=== PATIENT | male | born 1950 | race Caucasian/White ===

== ENCOUNTER → 2016-09-22 | Day surgery (SDC) | payer OTHER ==
[~2016-09-22] MED LIST: ADVAI500I PO; ALBU8I INH; BUPIVACAINE/EPINEPHRINE 0.25% 50 ML VIAL ONE; DILA50CH CHEW; DILA8TAB4 PO; DOXE25CA2 PO; FURO40TA PO; GABA300C3 PO; INDO25 PO; IPRA0.03; LACTATED RINGER'S 1000 ML INJ 1,000 ML ONE; LIDOCAINE HCL 1% 50 ML VIAL ONE; LOPI600T PO; LOSA100T PO; MORP100T40 PO; NAPR-576 PO; PEXE20TA PO; PRAV40 PO; PROPOFOL 100 MG/10 ML INJ IV ONE; PROPOFOL 500 MG/50 ML BTL IV ONE; PROT40TA PO; ROBA750T3 PO; SODIUM BICARBONATE 8.4% INJ 50 ML ONE; SYNT50TA PO; TAMS0.4C4; TIOT18I INH; VANCOMYCIN HCL 1000 MG VIAL ONE; XANA0.5T PO; ceFAZolin 2 GM PREMIX 50 ML ONE
--- NOTE | 2016-09-22 10:11 | TN ---
cc: SHARRI DESAI M.D. DATE OF OPERATION September 22, 2016 PREOPERATIVE DIAGNOSES 1. Chronic pain syndrome. 2. Status post L3-L5 laminectomy and fusion, spinal instrumentation. 3. Thoracic/lumbar spine severe degenerative disc disease, osteoarthritis. POSTOPERATIVE DIAGNOSES 1. Chronic pain syndrome. 2. Status post L3-L5 laminectomy and fusion, spinal instrumentation. 3. Right greater than left chronic lumbar radiculopathy. 4. Thoracic/lumbar spine severe degenerative disc disease, osteoarthritis. PROCEDURE Thoracic laminectomy, implantation neurostimulator and electrodes in the epidural space; insertion of spinal neurostimulator, pulse generator; complex program first hour, fluoroscopic guidance for localization of spinal cord paddle lead device. SURGEON Robbie Desai MD ASSESSMENT Sophia Jordan PA-C SPECIMENS None. ESTIMATED BLOOD LOSS Minimal. COMPLICATIONS None. ANESTHESIA TIVA, local. DRAINS None. CONDITION Stable. PLAN OF ACTIVITY As per orders. PROCEDURE My assistant general manager Sophia Jordan PA-C, was present for the entire surgical case. She was medically necessary for the entire case because of the complexity of the case and to facilitate the performance of the procedure. The HAND FUNNEL COATER at the back table was not of the skill set for this case to manipulate the instruments, e.g. multiple different soft tissue retractors, trial implants and permanent implants. The patient was brought into the operating room. The patient positioned himself in a prone position. He was very comfortable. The patient was then given sedation. The thoracic, lumbar spine and posterior iliac crest were all prepped and draped in the usual sterile manner. Localizing x-ray was used to confirm the T10-T11 interspace. Local anesthesia with bicarbonate was used to anesthetize the operative site. A small incision was made in this region of the lower thoracic spine. All bleeders were anticoagulated. The paraspinal muscles were gently removed from the posterior elements. A laminectomy was performed. Using the Sm[employer] cover edge X32, 50 cm in length, 4.8 surgical services director was then placed in the interspace from approximately mid-T7 down through T9. The patient was then awakened. He is found to have excellent stimulation in his lumbar spine region where he had the pain and excellent stimulation involving bilateral lower extremities. The patient was then re-anesthetized. The anchor leads were then used and secured in leads #1 and #4 to the posterior spinous processes using 3-0 Vicryl suture. A separate incision was made over the right posterior iliac crest region in the flank area between the iliac crest and the rib cage. Pocket was developed following the use of local anesthesia. The passer was then placed into the thoracic/lumbar spine incision and all four leads were then connected to the [employer] implantable pulse generator. Programming was performed. The patient was found to have excellent connections. The thoracic spine incision was closed in multiple layers using 0 Vicryl and 2-0 Vicryl. The skin was approximated with running subcuticular 3-0 Vicryl. The right flank incision was closed with 0 Vicryl, 2-0 Vicryl and running subcuticular 3-0 Vicryl. Dermabond was placed over the skin incision. Sterile dressings were applied. The patient tolerated the procedure well and arrived in the recovery room in stable and satisfactory condition. MD LILLIAN Arellano/ANJELICA /9:10 AM /9:48 AM
== END | disposition home or self-care (01) ==
LOC: ESDC 06:16
PROVIDERS: ATTEND Orthopaedic Surgery Orthopaedic Surgery of the Spine
DX: M51.15 Intervertebral disc disorders with radiculopathy, thoracolumbar region (principal); G89.4 Chronic pain syndrome; M47.815 Spondylosis without myelopathy or radiculopathy, thoracolumbar region; M47.9 Spondylosis, unspecified; M96.1 Postlaminectomy syndrome, not elsewhere classified
CPT/HCPCS: 00620; 63655; 63685; 72070; 76000; C1767; C1778; J0690; J3010; J3370; J7120

== ENCOUNTER 2017-05-11 14:39 | Emergency (ER) | payer OTHER ==
[~2017-05-11] VITALS: Ht 177.8 cm; Wt 100.0 kg
[~2017-05-11 14:39] MED LIST changes: -BUPIVACAINE/EPINEPHRINE 0.25% 50 ML VIAL ONE; -LACTATED RINGER'S 1000 ML INJ 1,000 ML ONE; -LIDOCAINE HCL 1% 50 ML VIAL ONE; -PROPOFOL 100 MG/10 ML INJ IV ONE; -PROPOFOL 500 MG/50 ML BTL IV ONE; -SODIUM BICARBONATE 8.4% INJ 50 ML ONE; -VANCOMYCIN HCL 1000 MG VIAL ONE; -ceFAZolin 2 GM PREMIX 50 ML ONE
[2017-05-11 14:42] VITALS: BP 139/66; PULSE 95; RESP 26; TEMP 99; O2SAT 87
[2017-05-11 15:00] VITALS: RESP 22; O2SAT 99
--- NOTE | 2017-05-11 15:14 | PD ---
HPI Chief Complaint: Medical Clearance Time Seen by Provider: 15:01 Travel History International Travel<30 days: No Contact w/Intl Traveler<30days: No Traveled to known affect area: No History of Present Illness HPI Patient comes in for evaluation at reported advice of his infectious disease doctor Dr. Barreto per his . Patient is currently on liquid vancomycin for C. difficile that was diagnosed on the of this month. Patient was previously on Levaquin and then Invanz for a reported Escherichia coli pneumonia. Per patient and his his repeat sputum cultures were negative on the of this month, but was told that time he did have C. difficile and was started on vancomycin. Patient's states that he has been becoming more confused over the past several months that has gotten worse over the past 4 days. Reports subjective fevers and increasing shortness of breath. Patient has been using his home O2 along with nebulizer treatments with minimal improvement of symptoms. Shortness of breath is worse first thing in the morning. Patient denies any chest pain, abdominal pain, numbness or tingling anywhere, or headaches. Patient does report some occasional blurry vision, weight loss, intermittent shaking, and subjective fevers. Patient reports he occasionally has a cough that is productive has been ongoing for a while. Patient is concerned states that last time patient got like this he had to be placed in a coma and occurred in 2013. Patient's styrene dehydration reactor operator is Dr. Brooks. [facility] Past Medical History Cardiovascular Problems: Yes COPD: Yes Coronary Artery Disease: Yes Hypertension: Yes Musculoskeletal: Yes (back) Respiratory: Yes Social History Tobacco Use: No Substance Use: No Allergies-Medications (Allergen,Severity, Reaction): Coded Allergies: delavirdine (Unverified Adverse Reaction, Mild, 05/11/17) Reported Meds & Prescriptions Reported Meds & Active Scripts Active Medrol Dosepak (Methylprednisolone) 4 Mg Dspk 4 Mg PO DIRECTED Per Pharmacist direction Reported Doxepin (Doxepin HCl) 25 Mg Cap 50 Mg PO HS Gabapentin 300 Mg Cap 300 Mg PO TID Pantoprazole (Pantoprazole Sodium) 40 Mg Tab 40 Mg PO DAILY Diphenoxylate-Atropine 2.5-0.025 Mg Tab 2 Tab PO Q6H PRN Levothyroxine (Levothyroxine Sodium) 50 Mcg Tab 50 Mcg PO DAILY Ferrous Sulfate 325 Mg (65 Mg Iron) Tablet 325 Mg PO 2XWEEK Klor-Con 10 (Potassium Chloride) 10 Meq Tab 10 Meq PO DAILY Tamsulosin (Tamsulosin HCl) 0.4 Mg Cap 0.4 Mg PO HS Methocarbamol 750 Mg Tab 1,500 Mg PO TID Hydromorphone (Hydromorphone HCl) 8 Mg Tab 8 Mg PO Q6H PRN Combivent Respimat Inh (Ipratropium-Albuterol Inh) 20-100 [place]it[place]/Act Aero 1 Puff INH QID Ventolin Hfa 18 GM Inh (Albuterol Sulfate) 90 Mcg/Act Aer 2 Puff INH DAILY Advair Diskus Inh (Fluticasone-Salmeterol Inh) 500-50 Mcg/Blist Aer 1 Puff INH BID Rinse mouth after use. Spiriva Handihaler (Tiotropium Inh) 18 Mcg Cap 18 Mcg INH DAILY 1 capsule = 18 mcg Lovastatin 40 Mg Tab 40 Mg PO HS Gemfibrozil 600 Mg Tab 600 Mg PO BIDAC Take 30 minutes prior to breakfast and dinner. Indomethacin 25 Mg Cap 25 Mg PO DAILY Take with food, milk, or antacids to decrease stomach adverse effects. Naproxen 500 Mg Tab 500 Mg PO BID Alprazolam 0.5 Mg Tab 0.5 Mg PO TID Paroxetine (Paroxetine HCl) 20 Mg Tab 20 Mg PO DAILY Phenytoin Chew (Phenytoin) 50 Mg Chw 50 Mg PO DAILY Amlodipine (Amlodipine Besylate) 10 Mg Tab 10 Mg PO DAILY Furosemide 40 Mg Tab 40 Mg PO DAILY Losartan-Hydrochlorothiazide 100-25 Mg Tab 1 Tab PO DAILY Review of Systems Except as stated in HPI: all other systems reviewed are Neg Physical Exam Narrative GENERAL: Well-developed, overly nourished, in no acute distress, and non-ill appearing. SKIN: Focused skin assessment warm and dry. HEAD: Atraumatic. Normocephalic. EYES: Pupils equal and round. EOMI. No scleral icterus. No injection or drainage. ENT: No nasal bleeding or discharge. Mucous membranes pink and moist. NECK: Trachea midline. No JVD. Supple. No nuclear rigidity. CARDIOVASCULAR: Regular rate and rhythm. No murmur appreciated. RESPIRATORY: No accessory muscle use. No respiratory distress. Crackles noted throughout. GASTROINTESTINAL: Abdomen soft, non-tender, nondistended, and no guarding. Hepatic and splenic margins not palpable. Normal bowel sounds 4. No pulsatile mass. MUSCULOSKELETAL: No obvious deformities. No clubbing. No cyanosis. No edema. Full range of motion. NEUROLOGICAL: Awake and alert. No obvious cranial nerve deficits. Motor grossly within normal limits. Normal speech. PSYCHIATRIC: Appropriate mood and affect; insight and judgment normal. Data Data Last Documented VS Vital Signs Date Time Temp Pulse Resp B/P (MAP) Pulse Ox O2 Delivery O2 Flow Rate FiO2 05/11/17 17:00 76 16 144/68 (93) 99 Nasal Cannula 2.00 05/11/17 14:42 99.0 Orders Orders Complete Blood Count With Diff (05/11/17 15:21) Comprehensive Metabolic Panel (05/11/17 15:21) Prothrombin Time / Inr (Pt) (05/11/17 15:21) Act Partial Throm Time (Ptt) (05/11/17 15:21) Lactic Acid Sepsis Protocol (05/11/17 15:21) Magnesium (Mg) (05/11/17 15:21) Ckmb (Isoenzyme) Profile (05/11/17 15:21) Troponin I (05/11/17 15:21) Urinalysis - C+S If Indicated (05/11/17 15:21) Influenzae A/B Antigen (05/11/17 15:21) Blood Culture (05/11/17 15:21) Chest, Single Ap (05/11/17 15:21) Blood Glucose (05/11/17 15:21) Ecg Monitoring (05/11/17 15:21) Iv Access Insert/Monitor (05/11/17 15:21) Oximetry (05/11/17 15:21) Oxygen Administration (05/11/17 15:21) Ct Brain W/O Iv Contrast(Rout) (05/11/17 15:21) Metronidazole 500 Mg Inj (Flagyl 500 Mg (05/11/17 15:30) Albuterol-Ipratropium Neb (Duoneb Neb) (05/11/17 15:30) Ed Discharge Order (05/11/17 16:52) Methylprednisolone So Succ Inj (Solumedr (05/11/17 17:15) Labs Laboratory Tests Test 05/11/17 15:25 White Blood Count 7.2 TH/MM3 Red Blood Count 3.42 MIL/MM3 Hemoglobin 9.8 GM/DL Hematocrit 30.1 % Mean Corpuscular Volume 88.0 FL Mean Corpuscular Hemoglobin 28.6 PG Mean Corpuscular Hemoglobin Concent 32.5 % Red Cell Distribution Width 14.0 % Platelet Count 144 TH/MM3 Mean Platelet Volume 9.3 FL Neutrophils (%) (Auto) 81.2 % Lymphocytes (%) (Auto) 9.5 % Monocytes (%) (Auto) 8.7 % Eosinophils (%) (Auto) 0.4 % Basophils (%) (Auto) 0.2 % Neutrophils # (Auto) 5.8 TH/MM3 Lymphocytes # (Auto) 0.7 TH/MM3 Monocytes # (Auto) 0.6 TH/MM3 Eosinophils # (Auto) 0.0 TH/MM3 Basophils # (Auto) 0.0 TH/MM3 CBC Comment DIFF FINAL Differential Comment Prothrombin Time 11.4 SEC Prothromb Time International Ratio 1.0 RATIO Activated Partial Thromboplast Time 29.6 SEC Urine Color LIGHT-YELLOW Urine Turbidity CLEAR Urine pH 5.5 Urine Specific [place] 1.007 Urine Protein NEG mg/dL Urine Glucose (UA) NEG mg/dL Urine Ketones NEG mg/dL Urine Occult Blood NEG Urine Nitrite NEG Urine Bilirubin NEG Urine Urobilinogen LESS THAN 2.0 MG/DL Urine Leukocyte Esterase NEG Urine WBC LESS THAN 1 /hpf Urine Mucus FEW /lpf Microscopic Urinalysis Comment CULT NOT INDICATED Blood Urea Nitrogen 18 MG/DL Creatinine 0.86 MG/DL Random Glucose 115 MG/DL Total Protein 7.0 GM/DL Albumin 3.3 GM/DL Calcium Level 8.7 MG/DL Magnesium Level 2.0 MG/DL Alkaline Phosphatase 73 U/L Aspartate Amino Transf (AST/SGOT) 21 U/L Alanine Aminotransferase (ALT/SGPT) 30 U/L Total Bilirubin 0.5 MG/DL Sodium Level 137 MEQ/L Potassium Level 3.6 MEQ/L Chloride Level 100 MEQ/L Carbon Dioxide Level 30.4 MEQ/L Anion Gap 7 MEQ/L Estimat Glomerular Filtration Rate 89 ML/MIN Lactic Acid Level 1.6 mmol/L Total Creatine Kinase 97 U/L Troponin I LESS THAN 0.02 NG/ML MDM Medical Decision Making Medical Screen Exam Complete: Yes Emergency Medical Condition: Yes Interpretation(s) Last Impressions Head CT 05/11/17 1521 Signed Impressions: Service Date/Time: April 15:36 - CONCLUSION: No acute disease. Bj Light Jr., MD Chest X-Ray 05/11/17 1521 Signed Impressions: Service Date/Time: April 15:30 - CONCLUSION: 1. Small area consolidation involving the retrocardiac left lung base. Atelectasis versus developing infiltrate. Mild cardiomegaly. Bj Light Jr., MD Laboratory Tests Test 05/11/17 15:25 White Blood Count 7.2 TH/MM3 (4.0-11.0) Red Blood Count 3.42 MIL/MM3 (4.50-5.90) Hemoglobin 9.8 GM/DL (13.0-17.0) Hematocrit 30.1 % (39.0-51.0) Mean Corpuscular Volume 88.0 FL (80.0-100.0) Mean Corpuscular Hemoglobin 28.6 PG (27.0-34.0) Mean Corpuscular Hemoglobin Concent 32.5 % (32.0-36.0) Red Cell Distribution Width 14.0 % (11.6-17.2) Platelet Count 144 TH/MM3 (150-450) Mean Platelet Volume 9.3 FL (7.0-11.0) Neutrophils (%) (Auto) 81.2 % (16.0-70.0) Lymphocytes (%) (Auto) 9.5 % (9.0-44.0) Monocytes (%) (Auto) 8.7 % (0.0-8.0) Eosinophils (%) (Auto) 0.4 % (0.0-4.0) Basophils (%) (Auto) 0.2 % (0.0-2.0) Neutrophils # (Auto) 5.8 TH/MM3 (1.8-7.7) Lymphocytes # (Auto) 0.7 TH/MM3 (1.0-4.8) Monocytes # (Auto) 0.6 TH/MM3 (0-0.9) Eosinophils # (Auto) 0.0 TH/MM3 (0-0.4) Basophils # (Auto) 0.0 TH/MM3 (0-0.2) CBC Comment DIFF FINAL Differential Comment Prothrombin Time 11.4 SEC (9.8-11.6) Prothromb Time International Ratio 1.0 RATIO Activated Partial Thromboplast Time 29.6 SEC (24.3-30.1) Urine Color LIGHT-YELLOW (YELLW/STRAW) Urine Turbidity CLEAR (CLEAR) Urine pH 5.5 (5.0-8.5) Urine Specific [place] 1.007 (1.002-1.035) Urine Protein NEG mg/dL (NEG-TRACE) Urine Glucose (UA) NEG mg/dL (NEG) Urine Ketones NEG mg/dL (NEG) Urine Occult Blood NEG (NEG) Urine Nitrite NEG (NEG) Urine Bilirubin NEG (NEG) Urine Urobilinogen LESS THAN 2.0 MG/DL (LESS Urine Leukocyte Esterase NEG (NEG) Urine WBC LESS THAN 1 /hpf (0-5) Urine Mucus FEW /lpf (OCC) Microscopic Urinalysis Comment CULT NOT INDICATED Blood Urea Nitrogen 18 MG/DL (7-18) Creatinine 0.86 MG/DL (0.60-1.30) Random Glucose 115 MG/DL (74-106) Total Protein 7.0 GM/DL (6.4-8.2) Albumin 3.3 GM/DL (3.4-5.0) Calcium Level 8.7 MG/DL (8.5-10.1) Magnesium Level 2.0 MG/DL (1.5-2.5) Alkaline Phosphatase 73 U/L (45-117) Aspartate Amino Transf (AST/SGOT) 21 U/L (15-37) Alanine Aminotransferase (ALT/SGPT) 30 U/L (12-78) Total Bilirubin 0.5 MG/DL (0.2-1.0) Sodium Level 137 MEQ/L (136-145) Potassium Level 3.6 MEQ/L (3.5-5.1) Chloride Level 100 MEQ/L (98-107) Carbon Dioxide Level 30.4 MEQ/L (21.0-32.0) Anion Gap 7 MEQ/L (5-15) Estimat Glomerular Filtration Rate 89 ML/MIN (>89) Lactic Acid Level 1.6 mmol/L (0.4-2.0) Total Creatine Kinase 97 U/L (39-308) Troponin I LESS THAN 0.02 NG/ML Differential Diagnosis Pneumonia, COPD, COPD exacerbation, electrolyte abnormality, sepsis, dehydration , other Narrative Course The patient is moving air well and in no distress nor significant dyspnea, and oxygen saturation is within normal limits. There is no clinical evidence to suggest pneumonia at this time. Diagnosis, plan of care and management were discussed with the patient who agreed with plan and feels better and ready to go home. The patient was instructed to return if worsen, worsening difficulty breathing or wheezing, persistent fever, chest pain or as needed. Discussed and reviewed patient with Dr. King and we suspect x-ray findings were atelectasis and not early infiltrate. Patient was offered admission for 23- hour observation however is refusing this at this time. does not want him admitted either. Patient was started on steroids for his COPD. Patient in no obvious distress upon re-evaluation. All pertinent laboratory/Radiology result(s ) discussed with patient and . Patient was asked if they wanted to speak to my attending, which the patient did not wish to do at this time. Any questions/ concerns in reference to patient diagnosis/condition discussed and clarified prior to patient's discharge. Reinforced sheer importance of close follow up with patient's primary physician or primary care clinic, the infectious disease doctor, styrene dehydration reactor operator, and neurologist. Instructed patient to return to ED immediately, if symptoms return/worsen. Patient showed understanding of above instructions. Further instructions and recommendations were detailed in discharge paperwork. Patient left without difficulty out of ED at discharge. Diagnosis Primary Impression: COPD (chronic obstructive pulmonary disease) Qualified Codes: J44.9 - Chronic obstructive pulmonary disease, unspecified Additional Impression: Memory changes Patient Instructions: COPD (Chronic Obstructive Pulmonary Disease) (ED), General Instructions Additional Instructions: Follow-up with your primary care physician, infectious disease doctor, styrene dehydration reactor operator, and neurologist in one to 5 days for reevaluation. Take all medication as prescribed. Return to the emergency department if symptoms get worse. Scripts Methylprednisolone Dosepak (Medrol Dosepak) 4 Mg Dspk 4 MG PO DIRECTED, #1 DSPK 0 Refills Per Pharmacist direction Prov: Jose Rafael King MD 05/11/17 Disposition: 01 DISCHARGE HOME Condition: Stable Surya Hendrix May 11, 2017 15:14
[2017-05-11] MEDS ORDERED: metroNIDAZOLE 500 MG INJ 100 ML IV ONE ×2 (15:30)
[2017-05-11 15:48] LABS: AUTOMATED NEUTROPHIL # 5.8 TH/MM3 (1.8-7.7); BASOPHIL % 0.2 % (0.0-2.0); EOSINOPHIL % 0.4 % (0.0-4.0); HEMATOCRIT 30.1 % (39.0-51.0); HEMOGLOBIN 9.8 GM/DL (13.0-17.0); LYMPH % 9.5 % (9.0-44.0); LYMPHOCYTE # 0.7 TH/MM3 (1.0-4.8); MEAN CORPUSCULAR HEMOGLOBIN 28.6 PG (27.0-34.0); MEAN CORPUSCULAR HGB CONC 32.5 % (32.0-36.0); MEAN PLATELET VOLUME 9.3 FL (7.0-11.0); MONO % 8.7 % (0.0-8.0); MONOCYTE # 0.6 TH/MM3 (0-0.9); NEUT % 81.2 % (16.0-70.0); PLATELET COUNT 144 TH/MM3 (150-450); RED BLOOD COUNT 3.42 MIL/MM3 (4.50-5.90); WHITE BLOOD COUNT 7.2 TH/MM3 (4.0-11.0)
[2017-05-11] MEDS: RESP: ALBUTEROL 2.5 MG/IPRATROPIUM 0.5 MG NEB (SCH) INH ×2 (15:51)
[2017-05-11 15:58] LABS: BILIRUBIN, URINE NEG (NEG); BLOOD, URINE NEG (NEG); GLUCOSE,URINE NEG (NEG); KETONE, URINE NEG (NEG); MUCUS URINE FEW /lpf (OCC); NITRITE,URINE NEG (NEG); PH, URINE 5.5 (5.0-8.5); URINE COLOR LIGHT-YELLOW (YELLW/STRAW); URINE LEUKOCYTE ESTERASE NEG (NEG)
[2017-05-11 16:00] VITALS: BP 142/66; PULSE 78; RESP 16; O2SAT 98
[2017-05-11 16:02] LABS: PROTHROMBIN TIME - PATIENT 11.4 SEC (9.8-11.6)
[2017-05-11 16:07] LABS: ALBUMIN 3.3 GM/DL (3.4-5.0); AST (GOT) 21 U/L (15-37); BICARBONATE 30.4 MEQ/L (21.0-32.0); BLOOD UREA NITROGEN 18 MG/DL (7-18); CALCIUM 8.7 MG/DL (8.5-10.1); CHLORIDE 100 MEQ/L (98-107); CREATININE 0.86 MG/DL (0.60-1.30); GLOMERULAR FILTRATION RATE 89 ML/MIN (>89); GLUCOSE,RANDOM 115 MG/DL (74-106); SODIUM (NA) 137 MEQ/L (136-145)
[2017-05-11 16:08] LABS: ALT (GPT) 30 U/L (12-78)
[2017-05-11 16:12] LABS: ALKALINE PHOSPHATASE 73 U/L (45-117); TOTAL BILIRUBIN ADULT 0.5 MG/DL (0.2-1.0); TROPONIN I LESS THAN 0.02 NG/ML (0.02-0.05)
--- NOTE | 2017-05-11 16:12 | RADRPT ---
EXAM DATE/TIME: 05/11/2017 15:30 [facility] COMPARISON: No previous studies available for comparison. INDICATIONS : Shortness of breath. MEDICAL HISTORY : Chronic obstructive pulmonary disease. Emphysema. C-diff. SURGICAL HISTORY : CABG. ENCOUNTER: Initial ACUITY: 1 day PAIN SCORE: 0/10 LOCATION: Bilateral chest FINDINGS: A single portable frontal view the chest shows elevation of the right hemidiaphragm. Small parenchyma l consolidation involving the retrocardiac aspect of the left lung base. Heart is mildly enlarged. Gr aduated catheters overlie the spine. Median sternotomy wires noted. No effusions. CONCLUSION: 1. Small area consolidation involving the retrocardiac left lung base. Atelectasis versus developing infiltrate. Mild cardiomegaly. Bj Light Jr., MD on May 11, 2017 at 16:09 Board Certified Radiologist. This report was verified electronically.
--- NOTE | 2017-05-11 16:15 | RADRPT ---
EXAM DATE/TIME: 05/11/2017 15:36 [facility] COMPARISON: No previous studies available for comparison. INDICATIONS : Altered mental status. RADIATION DOSE: 56.35 CTDIvol (mGy) MEDICAL HISTORY : Seizures. Hypertension. Cardiovascular disease SURGICAL HISTORY : None. ENCOUNTER: Initial ACUITY: 1 day PAIN SCALE: 0/10 LOCATION: cranial TECHNIQUE: Multiple contiguous axial images were obtained of the head. Using automated exposure control and adj ustment of the mA and/or kV according to patient size, radiation dose was kept as low as reasonably a chievable to obtain optimal diagnostic quality images. DICOM format image data is available electro nically for review and comparison. FINDINGS: CEREBRUM: The ventricles are normal for age. No evidence of midline shift, mass lesion, hemorrhage or acute in farction. No extra-axial fluid collections are seen. POSTERIOR FOSSA: The cerebellum and brainstem are intact. The 4th ventricle is midline. The cerebellopontine angle i s unremarkable. EXTRACRANIAL: The visualized portion of the orbits is intact. SKULL: The calvaria is intact. No evidence of skull fracture. CONCLUSION: No acute disease. Bj Light Jr., MD on May 11, 2017 at 16:11 Board Certified Radiologist. This report was verified electronically.
[2017-05-11] MEDS ORDERED: LEVO50TA4 PO ×2 (16:19)
[2017-05-11] MEDS ORDERED: VENTAER INH ×2 (16:19)
[2017-05-11] MEDS ORDERED: METH750T PO ×2 (16:19)
[2017-05-11] MEDS ORDERED: LOVA40TA PO ×2 (16:19)
[2017-05-11] MEDS ORDERED: GEMF600T PO ×2 (16:19)
[2017-05-11] MEDS ORDERED: DIPH2.5T14 PO ×2 (16:19)
[2017-05-11] MEDS ORDERED: POTA-243 PO ×2 (16:19)
[2017-05-11] MEDS ORDERED: PHEN50CH PO ×2 (16:19)
[2017-05-11] MEDS ORDERED: FURO40TA PO ×2 (16:19)
[2017-05-11] MEDS ORDERED: ALPR0.5T3 PO ×2 (16:19)
[2017-05-11] MEDS ORDERED: DOXE25CA2 PO ×2 (16:19)
[2017-05-11] MEDS ORDERED: FERR325T8 PO ×2 (16:19)
[2017-05-11] MEDS ORDERED: LOSA100T2 PO ×2 (16:19)
[2017-05-11] MEDS ORDERED: AMLO10TA2 PO ×2 (16:19)
[2017-05-11] MEDS ORDERED: INDO25CA PO ×2 (16:19)
[2017-05-11] MEDS ORDERED: GABA300C5 PO ×2 (16:19)
[2017-05-11] MEDS ORDERED: ADVA500A INH ×2 (16:19)
[2017-05-11] MEDS ORDERED: TAMS0.4C4 PO ×2 (16:19)
[2017-05-11] MEDS ORDERED: HYDR8TAB PO ×2 (16:19)
[2017-05-11] MEDS ORDERED: IPRAAER INH ×2 (16:19)
[2017-05-11] MEDS ORDERED: SPIRCAP INH ×2 (16:19)
[2017-05-11] MEDS ORDERED: PARO20TA2 PO ×2 (16:19)
[2017-05-11] MEDS ORDERED: NAPR500T PO ×2 (16:19)
[2017-05-11] MEDS ORDERED: PANT40TA3 PO ×2 (16:19)
[2017-05-11 17:00] VITALS: BP 144/68; PULSE 76; RESP 16; O2SAT 99
[2017-05-11] MEDS ORDERED: MEDR4PAK PO ×2 (17:13)
[2017-05-11] MEDS ORDERED: methylPREDNISolone SOD SUCC 125 MG/2 ML VIAL IV PUSH ONE ×2 (17:15)
== END 2017-05-11 18:06 | disposition home or self-care (01) ==
LOC: NEPE 14:39
DX: J44.9 Chronic obstructive pulmonary disease, unspecified (principal); Z79.899 Other long term (current) drug therapy
CPT/HCPCS: 70450; 71010; 80053; 81001; 82550; 83605; 83735; 84484; 85025; 85610; 85730; 87040; 94640; 94664; 96365; 96375; 99285; J2930